=== PATIENT | male | born 1990 | race Caucasian/White ===

== ENCOUNTER 2021-05-30 08:00 | Outpatient (CLI) | payer OTHER | END 2021-05-30 23:59 | disposition home or self-care (01) | LOC: LAB.N 08:00 | PROVIDERS: ATTEND Family Medicine | DX: R05.9 Cough, unspecified (principal); Z20.822 Contact with and (suspected) exposure to COVID-19 ==

== ENCOUNTER 2022-07-04 18:39 | Emergency (ER) | payer OTHER ==
[2022-07-04] MEDS ORDERED: ACETAMINOPHEN 325 MG TABLET PO STA (18:51)
[2022-07-04 19:59] VITALS: BP 127/71
--- NOTE | 2022-07-04 20:06 | ED Physician Documentation ---
History of Present Illness - Stated complaint Stated Complaint: C+/FEVER/EAR PX - Chief complaint Chief Complaint: General - History obtained from History obtained from: Patient - History of Present Illness Timing: Last night Pain level max: 4 Pain level now: 4 - Additonal information Additional information: 31-year-old male presents the emergency department with cough, congestion, body aches. This started last night. Tested positive for COVID today. He is also having bilateral ear pain. Nothing makes it better or worse. No vomiting or diarrhea. No abdominal pain. No difficulty breathing. Review of Systems Constitutional: reports: Fever, Chills, Myalgias Ears: reports: Ear pain (Bilateral) Nose: reports: Rhinorrhea / runny nose, Congestion Throat: reports: Sore throat Respiratory: reports: Cough. denies: Dyspnea, Wheezing GI: denies: Abdominal Pain, Nausea, Vomiting, Diarrhea PD PAST MEDICAL HISTORY - Past Medical History Past Medical History: No - Past Surgical History Past Surgical History: Yes Ortho: ACL reconstruction - Present Medications Home Medications: Ambulatory Orders Medication Instructions Recorded Confirmed No Known Home Medications 07/04/22 07/04/22 - Allergies Allergies/Adverse Reactions: Allergies Allergy/AdvReac Type Severity Reaction Status Date / Time No Known Drug Allergies Allergy Verified 07/04/22 19:59 - Social History Does the pt smoke?: Yes Smoking Status: Current every day smoker Does the pt drink ETOH?: No Does the pt have substance abuse?: No - Immunizations Immunizations are current?: Yes - POLST Patient has POLST: No PD ED PE NORMAL - Vitals Vital signs reviewed: Yes - General General: Alert and oriented X 3, No acute distress - HEENT HEENT: PERRL, Ears normal, Moist mucous membranes, Pharynx benign - Neck Neck: Supple, no meningeal sign, No adenopathy - Cardiac Cardiac: RRR, Strong equal pulses - Respiratory Respiratory: No respiratory distress, Clear bilaterally - Abdomen Abdomen: Soft, Non tender, Non distended - Derm Derm: Warm and dry, No rash - Neuro Neuro: Alert and oriented X 3 - Psych Psych: Normal mood, Normal affect Results - Vitals Vitals: Vital Signs - 24 hr 07/04/22 07/04/22 18:49 19:58 Temperature 38.4 C H 38.8 C H Heart Rate 97 90 Respiratory 14 16 Rate Blood Pressure 148/106 H 127/71 O2 Saturation 97 97 Oxygen O2 Source Room air PD MEDICAL DECISION MAKING - ED course Complexity details: reviewed results, re-evaluated patient, considered differential, d/w patient ED course: Patient is well-appearing, nontoxic. Afebrile. We will have him follow-up with his doctor for further care. We did discuss Paxlovid, but declines this at this time. I think this is reasonable as he is COVID vaccinated and is not high risk for hospitalization. Patient counseled regarding signs and symptoms for which I believe and urgent re-evaluation would be necessary. Patient with good understanding of and agreement to plan and is comfortable going home at this time This document was made in part using voice recognition software. While efforts are made to proofread this document, sound alike and grammatical errors may occur. Departure - Departure Disposition: 01 Home, Self Care Clinical Impression: COVID-19 Condition: Good Instructions: ED Viral Syndrome Follow-Up: your,doctor in 1 week [Other] Comments: Please follow up with your doctor as needed for further care. Isolation precautions for COVID Day 0 is your first day of symptoms or a positive viral test. Day 1 is the first full day after your symptoms developed or your test specimen was collected. If you have COVID-19 or have symptoms, isolate for at least 5 days. IF YOU: Tested positive for COVID-19 or have symptoms, regardless of vaccination status Stay home for at least 5 days Stay home for 5 days and isolate from others in your home. Wear a well-fitting mask if you must be around others in your home. Do not travel. Ending isolation if you had symptoms End isolation after 5 full days if you are fever-free for 24 hours (without the use of fever-reducing medication) and your symptoms are improving. Ending isolation if you did NOT have symptoms End isolation after at least 5 full days after your positive test. If you got very sick from COVID-19 or have a weakened immune system You should isolate for at least 10 days. Consult your doctor before ending isolation. Take precautions until day 10 Wear a well-fitting mask Wear a well-fitting mask for 10 full days any time you are around others inside your home or in public. Do not go to places where you are unable to wear a mask. Do not travel Do not travel until a full 10 days after your symptoms started or the date your positive test was taken if you had no symptoms. Avoid being around people who are more likely to get very sick from COVID-19. Forms: Activity restrictions Discharge Date/Time: 07/04/22 20:11
== END 2022-07-04 20:11 | disposition home or self-care (01) ==
LOC: ED 18:39
DX: U07.1 COVID-19 (principal); F17.200 Nicotine dependence, unspecified, uncomplicated
CPT/HCPCS: 99282; A9270